=== PATIENT | male | born 1935 | race Caucasian/White ===

== ENCOUNTER 2017-04-12 19:49 | Inpatient (IN) | payer MEDICARE, BC ==
[~2017-04-12] VITALS: Ht 180.3 cm; Wt 101.8 kg
[2017-04-12 23:10] VITALS: BP 147/67; PULSE 85; TEMP 99.6
[2017-04-13] VITALS (14 sets, daily range): BP systolic 125–155; BP diastolic 52–78; PULSE 66–98; TEMP 97.5–99.6
[2017-04-13 06:55] LABS: BASO % 0.2 % (0.0-2.0); EOS % 0.1 % (0-4.0); GRAN # 5.9 (1.4-6.5); GRAN % 72.6 % (42.2-75.2); HEMATOCRIT 37.8 % (42.0-52.0); HEMOGLOBIN 12.9 g/dl (13.5-18.0); LYMPH # 1.3 (1.2-3.4); LYMPH % 16.5 % (20.0-51.0); MEAN CELL VOLUME 94 fl (80.0-100.0); MEAN CORPUSCULAR HEMOGLOBIN 32 pg (27.0-31.0); MEAN CORPUSCULAR HGB CONC 34 g/dl (33.0-37.0); MEAN PLATELET VOLUME 10.9 fl (7.4-10.4); MONO # 0.8 (0.1-0.6); MONO % 9.9 % (1.7-9.3); PLATELET COUNT 182 K/mm3 (130-400); RED BLOOD COUNT 4.04 M/mm3 (4.20-5.60); REDCELL DISTRIBUTION WIDTH-CV 12.9 % (11.5-14.5); WHITE BLOOD COUNT 8.1 K/mm3 (4.8-10.8)
[2017-04-13 07:12] LABS: CREATININE, serum 0.8 mg/dL (0.66-1.25); POTASSIUM 3.7 mmol/L (3.4-5.0)
[2017-04-13 08:58] LABS: PROTHROMBIN TIME 11.3 SECONDS (9.7-12.8)
[2017-04-13 09:08] LABS: ADJUSTED CALCIUM 8.3 mg/dL (8.4-10.2); ALBUMIN 3.8 gm/dL (3.5-5.0); CALCIUM 8.1 mg/dL (8.4-10.2); CREATININE, serum 0.8 mg/dL (0.66-1.25); POTASSIUM 3.9 mmol/L (3.4-5.0); TOTAL PROTEIN 6.7 gm/dL (6.4-8.2)
[2017-04-13 09:08] LABS: PH 6 (5-8); SQUAMOUS EPITHELIAL None Seen /hpf; URINE APPEARANCE Clear; URINE BACTERIA None Seen /hpf; URINE BILIRUBIN Negative (NEGATIVE); URINE BLOOD Negative (NEGATIVE); URINE COLOR Yellow; URINE GLUCOSE Negative (NEGATIVE); URINE KETONE 1+ (NEGATIVE); URINE UROBILINOGEN Negative (NEGATIVE); URINE WBC 0-2 /hpf
[2017-04-14 04:27] VITALS: BP 119/56; PULSE 98; TEMP 100.2
[2017-04-14 06:28] LABS: HEMATOCRIT 35.6 % (42.0-52.0)
[2017-04-14 11:15] VITALS: BP 124/66; PULSE 81; TEMP 98.4
[2017-04-14 14:00] VITALS: BP 118/64; PULSE 88; TEMP 98.6
[2017-04-14 15:34] LABS: SQUAMOUS EPITHELIAL None Seen /hpf; URINE APPEARANCE Hazy; URINE BACTERIA Rare /hpf; URINE COLOR Amber; URINE RBC >50 /hpf
[2017-04-14 15:35] LABS: PH 5 (5-8); URINE GLUCOSE Negative (NEGATIVE)
[2017-04-14 15:36] LABS: URINE BILIRUBIN Positive (NEGATIVE); URINE BLOOD 3+ (NEGATIVE); URINE KETONE Trace (NEGATIVE); URINE UROBILINOGEN Negative (NEGATIVE)
[2017-04-14 17:30] VITALS: BP 132/91; PULSE 92; TEMP 99.5
[2017-04-14 21:47] VITALS: BP 106/72; PULSE 100; TEMP 98.8
[2017-04-15 03:16] VITALS: BP 147/56; PULSE 92; TEMP 97.4
[2017-04-15 06:35] LABS: HEMATOCRIT 33.3 % (42.0-52.0)
[2017-04-15 10:06] VITALS: BP 132/49; PULSE 88
[2017-04-15 14:24] VITALS: BP 142/53; PULSE 87; TEMP 99.9
[2017-04-15] MEDS ORDERED: NORCO 325 MG-7.1 TAB PO (17:45)
[2017-04-15] MEDS ORDERED: ASPIRIN 32325 MG/TAB PO (17:45)
[2017-04-15] MEDS ORDERED: TYLENOL 325MG325 MG PO (17:46)
== END 2017-04-15 16:45 | DRG 470 ==
LOC: COL.ER 19:49 → SURG 20:30
PROVIDERS: Family Medicine; Internal Medicine; Orthopaedic Surgery; Physician Assistant
PROC: 0SRS0J9 Replacement of Left Hip Joint, Femoral Surface with Synthetic Substitute, Cemented, Open Approach (ICD-10-PCS; principal; 2017-04-13 10:00)
DX: S72.002A Fracture of unspecified part of neck of left femur, initial encounter for closed fracture (principal); W18.30XA Fall on same level, unspecified, initial encounter; I10 Essential (primary) hypertension; E86.0 Dehydration; H35.30 Unspecified macular degeneration
CPT/HCPCS: 99222-AI; 99231-AI; 99232-AI; 99233-AI; 99239; A4315; A9284; C1776; J0690; J2250; J2270; J2704; J3010; J7030; J7120

== ENCOUNTER 2017-04-15 16:35 | Inpatient (IN) | payer MEDICARE, BC ==
[~2017-04-15] VITALS: Ht 180.3 cm; Wt 104.4 kg
[2017-04-15] MEDS ORDERED: NORCO 325 MG-7.1 TAB PO (17:45)
[2017-04-15] MEDS ORDERED: ASPIRIN 32325 MG/TAB PO (17:45)
[2017-04-15] MEDS ORDERED: TYLENOL 325MG325 MG PO (17:46)
[2017-04-15 17:56] VITALS: BP 134/50; PULSE 81; TEMP 99.3
[2017-04-16 06:06] VITALS: BP 150/45; PULSE 100; TEMP 99.8
[2017-04-16 16:21] VITALS: BP 156/62; PULSE 86; TEMP 99.6
[2017-04-17 05:44] VITALS: BP 134/58; PULSE 88; TEMP 98.4
[2017-04-17 06:33] LABS: HEMATOCRIT 29.1 % (42.0-52.0); HEMOGLOBIN 9.7 g/dl (13.5-18.0)
[2017-04-17 15:40] VITALS: BP 128/54; PULSE 74; TEMP 98.7
[2017-04-18 05:18] VITALS: BP 135/58; BP 1355/58; PULSE 73; TEMP 99
[2017-04-18 17:27] VITALS: BP 140/50; PULSE 81; TEMP 99.8
[2017-04-18 22:07] VITALS: TEMP 98.4
[2017-04-19 05:17] VITALS: BP 126/59; PULSE 82; TEMP 98.4
[2017-04-19 16:24] VITALS: BP 138/46; PULSE 72; TEMP 99
[2017-04-20 03:58] VITALS: BP 132/55; PULSE 77; TEMP 98.4
[2017-04-20 16:11] VITALS: BP 124/46; PULSE 74; TEMP 97.5
[2017-04-21 06:00] VITALS: BP 128/51; PULSE 72; TEMP 97.6
[2017-04-21 18:20] VITALS: BP 133/56; PULSE 75; TEMP 98.6
[2017-04-22 05:42] VITALS: BP 131/56; PULSE 69; TEMP 98.1
[2017-04-22 16:37] VITALS: BP 125/47; PULSE 77; TEMP 97.8
[2017-04-23 04:45] VITALS: BP 137/64; PULSE 75; TEMP 98.6
[2017-04-23 16:00] VITALS: BP 118/55; PULSE 71; TEMP 97.7
[2017-04-24 06:43] VITALS: BP 133/70; PULSE 87; TEMP 99
[2017-04-24] MEDS ORDERED: COLACE 100100 MG/CAP PO (08:19)
[2017-04-24] MEDS ORDERED: Patient's Own Medica PO (08:20)
== END 2017-04-24 12:55 | disposition home or self-care (01) | DRG 561 ==
PROVIDERS: Internal Medicine
DX: S72.032D Displaced midcervical fracture of left femur, subsequent encounter for closed fracture with routine healing (principal); I10 Essential (primary) hypertension; H35.30 Unspecified macular degeneration; Z96.642 Presence of left artificial hip joint
CPT/HCPCS: 99222-AI; 99232-AI; 99239

== ENCOUNTER 2017-07-23 14:45 | Outpatient (RCR) | payer MEDICARE, BC ==
[~2017-07-23 14:45] MED LIST: ASPIRIN 32325 MG/TAB PO; COLACE 100100 MG/CAP PO; NORCO 325 MG-7.1 TAB PO; Patient's Own Medica PO; TYLENOL 325MG325 MG PO
== END 2017-07-30 ==
LOC: WSPT
DX: Z96.643 Presence of artificial hip joint, bilateral (principal)
CPT/HCPCS: G8978-GP; G8979-GP; G8980-GP